=== PATIENT | female | born 1955 | race Caucasian/White ===

== ENCOUNTER 2021-05-13 21:37 | Emergency (ER) | payer MEDICARE ==
--- NOTE | 2021-05-13 23:21 | EDM.PDOC ---
ED HPI GENERAL MEDICAL PROBLEM - General Chief Complaint: Head Injury Stated Complaint: FELL ON CEMENT ON HEAD Time Seen by Provider: 05/13/21 22:10 Source of Information: Reports: Patient History Limitations: Reports: No Limitations - History of Present Illness INITIAL COMMENTS - FREE TEXT/NARRATIVE: Pastora is a 65-year-old female presenting to the ED for evaluation of multiple injuries related to a fall. The patient was carrying her birdfeeders in from the outdoors to prevent them from being damaged by bears and raccoons. She was walking on her sidewalk and and take a big enough step up a small stop causing her to trip forward and landed on the birdfeeders striking her head on the sidewalk. She denies any loss of consciousness but she did scrape her right eyebrow, right glasses lens, and has a little bit of pain in the right labial fold. She also has pain and swelling in the left fifth finger has intact range of motion. She does have several abrasions on her left hand. She initially had a mild headache that is subsequently gone. She has very minimal pain on the right eyebrow. Head Pain Score (Numeric/FACES): 2 - Related Data Allergies Allergy/AdvReac Type Severity Reaction Status Date / Time Penicillins Allergy Rash Verified 05/13/21 22:24 Sulfa (Sulfonamide Allergy Hives Verified 05/13/21 22:24 Antibiotics) Home Meds: Home Meds Calcium Carbonate/Vitamin D3 [Calcium 600-Vit D3 500 Softgel] 2 tab PO DAILY 11/03/20 [History] Cetirizine HCl [Zyrtec] 10 mg PO DAILY 11/03/20 [History] Cholecalciferol (Vitamin D3) [Vitamin D3] 25 mcg PO DAILY 11/03/20 [History] Magnesium 250 mg PO DAILY 11/03/20 [History] hydroCHLOROthiazide [Hydrochlorothiazide] 12.5 mg PO DAILY 11/03/20 [History] Past Medical History HEENT History: Reports: Impaired Vision Genitourinary History: Reports: Renal Calculus Musculoskeletal History: Reports: Fracture Neurological History: Reports: Migraines Oncologic (Cancer) History: Reports: Other (See Below) Other Oncologic History: 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 right patella removed Social & Family History - Tobacco Use Tobacco Use Status *Q: Never Tobacco User - Caffeine Use Caffeine Use: Reports: None - Recreational Drug Use Recreational Drug Use: No ED ROS GENERAL - Review of Systems Review Of Systems: See Below HEENT: Reports: Glasses (Damage to the glasses of her right lens.), Other (Facial abrasion on the right eyebrow) Respiratory: Reports: No Symptoms Cardiovascular: Reports: No Symptoms Endocrine: Reports: No Symptoms GI/Abdominal: Reports: No Symptoms : Reports: No Symptoms Musculoskeletal: Reports: Hand Pain (Left hand pain especially over the fifth finger), Other (Mild right knee pain) Skin: Reports: Bruising (Left fifth finger) Neurological: Reports: Headache (Initially a mild headache that is now gone) Psychiatric: Reports: No Symptoms Hematologic/Lymphatic: Reports: No Symptoms Immunologic: Reports: No Symptoms ED EXAM, HEAD INJURY - Physical Exam Exam: See Below Exam Limited By: No Limitations General Appearance: Alert, No Apparent Distress Head: Normocephalic, Facial Abrasions (Small facial abrasion above the right eyebrow), Facial Swelling (Small amount of facial swelling above the right eyebrow), Facial Tenderness (Minimal tenderness of the right eyebrow and right maxilla just lateral to the midline). No: Scalp Tenderness, Navarrete's Sign, Facial Lacerations, Sinus Tenderness, Raccoon Eyes Nexus Criteria: No: Posterior, Midline Cervical Tenderness, Evidence of Intoxication, Altered Level of Consciousness, Focal Neurological Deficit, Painful Distraction Injuries Eyes: Bilateral Eye: EOMI, PERRL Nose: Normal Inspection, Normal Mucousa Throat/Mouth: Normal Inspection, Normal Lips, Normal Oropharynx, Normal Voice, No Airway Compromise Neck: Non-Tender, Full Range of Motion Respiratory: No Respiratory Distress, Lungs Clear, Normal Breath Sounds, Chest Non-Tender Cardiovascular: Normal Peripheral Pulses, Regular Rate, Rhythm GI/Abdominal Exam: Normal Bowel Sounds, Soft, Non-Tender Back Exam: Normal Inspection, Full Range of Motion Extremities: Normal Range of Motion, Joint Swelling (Swelling and mild tenderness on the left fifth finger with normal range of motion. 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 No: Disoriented x 3 Skin: Ecchymosis (Right fifth finger and lateral right hand) - [place] Coma Score Best Eye Response ([place]): (4) Open Spontaneously Best Verbal Response ([place]): (5) Oriented Best Motor Response ([place]): (6) Obeys Commands Course - Vital Signs Last Recorded V/S: Last Vital Signs Temp 36.2 C 05/13/21 22:22 Pulse 68 05/13/21 22:22 Resp 16 05/13/21 22:22 BP 194/82 H 05/13/21 22:22 Pulse Ox 98 05/13/21 22:22 - Orders/Labs/Meds Orders: Active Orders 24 hr Category Date Time Status Hand Comp Min 3V Lt [CR] Stat Exams 05/13/21 22:23 Taken Head wo Cont [CT] Stat Exams 05/13/21 22:23 Taken - Radiology Interpretation Free Text/Narrative:: I reviewed the CT of the head without contrast showing no acute intracranial abnormalities including hemorrhage, mass, or midline shift. There is no cranial abnormalities. This includes the frontal sinuses. There is no significant soft tissue swelling of the forehead. X-ray of the left hand was reviewed and there is no osseous abnormalities. - Re-Assessments/Exams Free Text/Narrative Re-Assessment/Exam: 05/13/21 23:22 Pastora likely suffered a mild concussion with her fall striking her head on the concrete. She initially had a headache that is now gone. She denies any vision changes and her neurologic exam is completely normal. She did suffer a contusion to her right knee and left hand but there is no evidence for fractures in the left hand. I recommend pain control with Tylenol or ibuprofen. She may use ice to reduce swelling. She should take it easy for the next 24 hours per the caution protocol. Should she start developing any vision changes, numbness or tingling, nausea or vomiting, or weakness she should return immediately to the ED for reevaluation. Patient is in agreement with this plan and all questions were answered prior to discharge. Departure - Departure Time of Disposition: 23:24 Disposition: Home, Self-Care 01 Clinical Impression: Abrasion, face w/o infection Fall Qualifiers: Encounter type: initial encounter Qualified Code(s): W19.XXXA - Unspecified fall, initial encounter Head injury, closed, without LOC Qualifiers: Encounter type: initial encounter Qualified Code(s): S09.90XA - Unspecified injury of head, initial encounter Contusion of left hand Qualifiers: Encounter type: initial encounter Qualified Code(s): S60.222A - Contusion of left hand, initial encounter Contusion of right knee Qualifiers: Encounter type: initial encounter Qualified Code(s): S80.01XA - Contusion of right knee, initial encounter - Discharge Information Instructions: Head Injury, Adult, [id number], Hand Contusion, Facial or Scalp Contusion, [id number], Abrasion, [id number] Referrals: Manisha Welsh MD [Primary Care Provider] - Care Plan Goals: Your work-up today has failed to demonstrate any acute bad abnormalities. There was no evidence for fractures or any damage to the brain, however, you likely had a mild concussion which caused the headache. The concussion protocol recommends rest for 24 hours after the cessation of headache therefore, I recommend that you relax tomorrow in a low stimulation environment and avoid any alcohol or tobacco. You may take Tylenol or ibuprofen for headache should it develop. You may also take this for the swelling and pain in the hand. I would recommend icing the hand 15 to 20 minutes every couple hours you are awake. Frozen peas seem to work the best. You also likely suffered a contusion to your knee. Return to the ED should you develop any worsening of headache, any new onset of numbness or tingling or weakness, any new onset of nausea or vomiting which could signify worsening of a head injury. Sepsis Event Note (ED) - Evaluation Sepsis Screening Result: No Definite Risk - Focused Exam Vital Signs: Vital Signs Temp Pulse Resp BP Pulse Ox 05/13/21 22:22 36.2 C 68 16 194/82 H 98 05/13/21 21:53 36.2 C 68 16 194/82 H 98 - Problem List & Annotations (1) Abrasion, face w/o infection SNOMED Code(s): 45920292 Code(s): S00.81XA - ABRASION OF OTHER PART OF HEAD, INITIAL ENCOUNTER Status: Acute Priority: Medium Current Visit: Yes (2) Contusion of left hand SNOMED Code(s): 0453156 Code(s): S60.222A - CONTUSION OF LEFT HAND, INITIAL ENCOUNTER Status: Acute Priority: Medium Current Visit: Yes Qualifiers: Encounter type: initial encounter Qualified Code(s): S60.222A - Contusion of left hand, initial encounter (3) Contusion of right knee SNOMED Code(s): 26223919 Code(s): S80.01XA - CONTUSION OF RIGHT KNEE, INITIAL ENCOUNTER Status: Acute Priority: Medium Current Visit: Yes Qualifiers: Encounter type: initial encounter Qualified Code(s): S80.01XA - Contusion of right knee, initial encounter (4) Fall SNOMED Code(s): 3005084, 653676105 Code(s): W19.XXXA - UNSPECIFIED FALL, INITIAL ENCOUNTER Status: Acute Priority: Medium Current Visit: Yes Qualifiers: Encounter type: initial encounter Qualified Code(s): W19.XXXA - Unspecified fall, initial encounter (5) Head injury, closed, without LOC SNOMED Code(s): 618920086910, 556806035640 Code(s): S09.90XA - UNSPECIFIED INJURY OF HEAD, INITIAL ENCOUNTER Status: Acute Priority: Medium Current Visit: Yes Qualifiers: Encounter type: initial encounter Qualified Code(s): S09.90XA - Unspecified injury of head, initial encounter - Problem List Review Problem List Initiated/Reviewed/Updated: Yes - My Orders Last 24 Hours: My Active Orders 05/13/21 22:23 Hand Comp Min 3V Lt [CR] Stat Head wo Cont [CT] Stat - Assessment/Plan Last 24 Hours: My Active Orders 05/13/21 22:23 Hand Comp Min 3V Lt [CR] Stat Head wo Cont [CT] Stat
--- NOTE | 2021-05-13 23:54 | CRLCT ---
For Patients: As a result of the Century Cures Act, medical imaging exams and procedure reports are released immediately into your electronic medical record. You may view this report before your referring provider. If you have questions, please contact your health care provider. INDICATION: Fall, head injury TECHNIQUE: CT head without contrast. COMPARISON: None. FINDINGS: CSF spaces: Within normal limits for age. Brain parenchyma: The delvalle-white differentiation is normal. No sign of mass, hemorrhage, or midline shift. Skull base and calvarium: The visualized paranasal sinuses and mastoid air cells demonstrate no acute or significant findings. The visualized orbits are grossly unremarkable. No skull fractures. IMPRESSION: Unremarkable noncontrast head CT. Please note that all CT scans at this facility use dose modulation, iterative reconstruction, and/or weight-based dosing when appropriate to reduce radiation dose to as low as reasonably achievable. Dictated by Caleb Bustos MD @ 05/13/2021 11:52:[address] Caleb Bustos @ May 13 2021 11:52PM
--- NOTE | 2021-05-15 12:31 | CR ---
Hand Comp Min 3V Lt CLINICAL HISTORY: Pain FINDINGS: There is no acute fracture or dislocation of the hand. I traverse surfaces are smooth. Impression: Negative
== END 2021-05-13 23:37 | disposition home or self-care (01) ==
LOC: JP.ED 21:37
DX: S09.90XA Unspecified injury of head, initial encounter (principal); S80.01XA Contusion of right knee, initial encounter; S60.222A Contusion of left hand, initial encounter; S60.051A Contusion of right little finger without damage to nail, initial encounter; S00.81XA Abrasion of other part of head, initial encounter; Z88.0 Allergy status to penicillin; Z88.2 Allergy status to sulfonamides; Z79.899 Other long term (current) drug therapy; W01.198A Fall on same level from slipping, tripping and stumbling with subsequent striking against other object, initial encounter; Y93.01 Activity, walking, marching and hiking; Y92.480 Sidewalk as the place of occurrence of the external cause
CPT/HCPCS: 70450; 73130-26-LT; 73130-LT; 99284-25

== ENCOUNTER 2022-03-20 07:18 | Day surgery (SDC) | payer MEDICARE, OTHER ==
[~2022-03-20 07:18] MED LIST: Midazolam 1 MG/ML 2 ML SDV ONE; Propofol 200 MG/20 ML SDV ONE; fentaNYL 100 MCG/2 ML SDV ONE
[2022-03-20] MEDS ORDERED: Lactated Ringers 1,000 ML IV SCH (08:00)
== END 2022-03-20 10:00 | disposition home or self-care (01) ==
LOC: JP.SDS 07:18
PROVIDERS: ATTEND Family Medicine
DX: Z12.11 Encounter for screening for malignant neoplasm of colon (principal); K64.4 Residual hemorrhoidal skin tags; I10 Essential (primary) hypertension; Z88.2 Allergy status to sulfonamides; Z88.0 Allergy status to penicillin; Z86.010 Personal history of colon polyps; Z90.49 Acquired absence of other specified parts of digestive tract
CPT/HCPCS: J2250; J2704; J3010; J7120

== ENCOUNTER 2023-06-02 08:11 | Emergency (ER) | payer MEDICARE | END 2023-06-02 09:24 | disposition home or self-care (01) | LOC: JP.ED 08:11 | DX: I10 Essential (primary) hypertension (principal); Z88.0 Allergy status to penicillin; Z88.2 Allergy status to sulfonamides; Z88.8 Allergy status to other drugs, medicaments and biological substances; Z79.899 Other long term (current) drug therapy; Z90.49 Acquired absence of other specified parts of digestive tract | CPT/HCPCS: 99283 ==

== ENCOUNTER 2025-03-31 06:59 | Day surgery (SDC) | payer MEDICARE ==
[2025-03-31] MEDS ORDERED: fentaNYL 50 MCG/ML SDV ONE (07:24)
[2025-03-31] MEDS ORDERED: Propofol 200 MG/20 ML SDV ONE (07:24)
[2025-03-31] MEDS ORDERED: Midazolam 1 MG/ML 2 ML SDV ONE (07:24)
[2025-03-31] MEDS: Lactated Ringers 1,000 ML IV SCH (08:18)
== END 2025-03-31 09:50 | disposition home or self-care (01) ==
LOC: JP.SDS 06:59
PROVIDERS: ATTEND Surgery
DX: Z12.11 Encounter for screening for malignant neoplasm of colon (principal); D12.8 Benign neoplasm of rectum; I10 Essential (primary) hypertension; Z86.0100 Personal history of colon polyps, unspecified
CPT/HCPCS: 00811; 45385; J2250; J2704; J3010; J7120